=== PATIENT | male | born 2005 | race Caucasian/White ===

== ENCOUNTER 2023-01-09 18:22 | Emergency (ER) | payer OTHER, SELFPAY ==
[2023-01-09 18:23] VITALS: BP 108/57; PULSE 125; RESP 18; TEMP 37.9; O2SAT 99
[2023-01-09] MEDS: Acetaminophen 500 MG Tablet 1000 MG PO (18:41)
[2023-01-09] MEDS: Ibuprofen 400 MG Tablet 800 MG PO (18:42)
[2023-01-09 18:44] VITALS: BMI 22.2
--- NOTE | 2023-01-09 18:55 | EX.ED.DYSGE1 ---
HPI <WALTER Cochran - Last Filed: 01/09/23 20:00> History of Present Illness Chief Complaint: Cold Sx Narrative Narrative: Patient is a 17-year-old male with no significant medical history presents to the emergency department for 1 day of fever, sore throat, headache. Patient states that he is a college student, he woke up this morning not feeling well, and throughout the day, he noticed he had a fever, he was having difficulty ambulating because of body aches, and he is here for evaluation. He did not use any ibuprofen or Tylenol, he states he has not been drinking a lot of water because he was unable to walk because of his muscle aches to get to the water fountain. He denies any nausea or vomiting. He denies any cough. [facility] <WALTER Cochran - Last Filed: 01/09/23 20:00> [facility] Medical History (Updated 01/09/23 @ 20:00 by WALTER Cochran) Depression Home Medications NK 01/09/23 [History Last Taken Unknown] Allergy/AdvReac Type Severity Reaction Status Date / Time Food Allergies: Uncoded Allergy PT UNSURE Verified 01/09/23 18:25 OF REACTION Social History Smoking Status: Never smoker ROS <WALTER Cochran - Last Filed: 01/09/23 20:00> ROS ED ROS Narrative Constitutional: Negative for weight loss, weakness. Positive fever and chills Eyes: Negative for vision loss, vision change, double vision ENT: Negative for any ear pain, congestion. Positive for sore throat Cardiovascular: Negative for any chest pain, tightness, palpitations Respiratory: Negative for any cough, sputum production, hemoptysis, dyspnea, dyspnea on exertion, orthopnea Gastrointestinal: Negative for any abdominal pain, nausea, vomiting, diarrhea, constipation, blood in stool, blood in vomit : Negative for any urinary frequency, dysuria, retention, blood in urine Muscle skeletal: Negative for any muscle joint pain, stiffness, arthralgias, neck pain, back pain. Positive for myalgias Neurological: Negative for any headache, syncope, numbness or tingling, dizziness Skin: Negative for any rashes, lumps, itching, abrasions, lacerations Psychiatric: Negative for any depression, anxiety, stress, suicidal ideation, homicidal ideation Hematologic: Negative for any easy bruising, excessive bruising, easy bleeding Allergies: Negative for any eczema, hives, rash EXAM <WALTER Cochran - Last Filed: 01/09/23 20:00> Physical Exam Narrative Exam Narrative: Vital signs reviewed. Patient appears her fever, his eyes closed. HEET: Head normocephalic atraumatic, TMs clear bilaterally. Posterior pharynx is clear, moist mucous membranes. Nares clear bilaterally. Neck: Supple with no lymphadenopathy or tenderness. No signs of meningismus, negative jolt sign. Cardiac: Tachycardic rate no murmurs gallops or rubs, equal peripheral pulses bilaterally. Respiratory: Lungs clear to auscultation bilaterally. No chest tenderness. Abdomen: Soft, nontender, nondistended. No abdominal bruit or pulsatile masses. No hepatosplenomegaly Extremities: No peripheral edema, no signs of gross trauma or deformity. Active full range of motion of all extremities. Neuro: Cranial nerves II through XII intact, no focal neurological deficits. Skin: Clean dry and intact with no rash, purpura, petechiae, vesicles or pustules. Backs/flank: No CVA tenderness, no midline spinal tenderness, no deformity. Psych: Normal mood and affect. No SI, HI or acute psychosis. Const Vital Signs: 01/09/23 18:23 01/09/23 18:45 01/09/23 19:46 Temperature 100.3 F H 100.9 F H Temperature Source Temporal Oral Pulse Rate 125 H Respiratory Rate 18 Respiratory Effort Normal Non-Labored Respiratory Pattern Normal Blood Pressure 108/57 L Blood Pressure Mean 74 Pulse Ox 99 Oxygen Delivery Method Room Air Positive well nourished and well developed General Appearance ED: well developed <Dr. Gigi Nelson MD - Last Filed: 01/09/23 22:40> Physical Exam Const Vital Signs: 01/09/23 18:23 01/09/23 18:45 01/09/23 19:46 Temperature 100.3 F H 100.9 F H Temperature Source Temporal Oral Pulse Rate 125 H Respiratory Rate 18 Respiratory Effort Normal Non-Labored Respiratory Pattern Normal Blood Pressure 108/57 L Blood Pressure Mean 74 Pulse Ox 99 Oxygen Delivery Method Room Air MDM <WALTER Cochran - Last Filed: 01/09/23 20:00> MDM Lab Data Labs: Laboratory Results - last 24 hr 01/09/23 19:51 POC Glucose 106 Treatment and Re-Evaluation :: Patient appears generally well, patient appears nontoxic, vital signs are stable. Presenting to the emergency department for fever, chills, body aches headache sore throat for the last 12 hours. Patient's physical examination insistent with a viral-like syndrome. Differential diagnosis includes COVID-19, influenza, strep throat, other viral illness. Patient will receive ibuprofen, Tylenol here. Patient receive COVID-19, influenza testing as well as rapid strep. Patient's rapid strep, influenza, COVID are all negative. Patient's vital signs improved after ibuprofen, Tylenol. I believe the patient was suffering from significant discomfort secondary to not treating his fever secondary he had worsening muscle aches, headache. Patient states he is hungry and would like to eat something. Patient instructed to return for any worsening symptoms. At this time, patient be diagnosed with a viral illness. <Dr. Gigi Nelson MD - Last Filed: 01/09/23 22:40> [facility] Lab Data Labs: Laboratory Results - last 24 hr 01/09/23 19:51 POC Glucose 106 Treatment and Re-Evaluation Comments:: I have personally performed a face to face assessment of the patient and have reviewed the NARDA Note. I performed a substantive portion of the visit including all aspects of the following. My layton findings include: History is fevers, chills, myalgias, headache, sore throat for less than 1 day. No dyspnea. No coughing. No focal neurologic symptoms or confusion. Exam is appears malaised but in no distress. Febrile and mildly tachycardic. No cervical lymphadenopathy, neck supple. Posterior oropharynx shows some cobblestoning but normal tonsils and no trismus or stridor. Lungs clear. Ears normal. Medical Decison Making: Rapid strep and viral swabs, and supportive care if strep negative. All swabs returned negative including strep. Culture is sent, but will assume viral etiology, there has been a high prevalence in the community of this recently, supportive care advised unless the culture comes back positive we discussed that with her. Other additions or changes: [None] Discharge Plan Triage Chief Complaint: Cold Sx ED Midlevel Provider: Harsha Álvarez ED Provider: Gigi Nelson Dx/Rx/DC Orders Clinical Impression: Fever, Viral syndrome Instructions: ED Fever Control (Adult), ED Viral Syndrome (Adult) Prescriptions: No Action NK Primary Care Provider: Care Physician,No Primary Referrals: Care Physician,No Primary [Primary Care Provider] - Activity Restrictions/Additional Instructions: You will need to take 1000 mg of Tylenol every 6 hours, 600 mg of ibuprofen every 8 hours. Make sure that you maintain hydration, as well as eat a balanced diet. You should start to feel better in 3 to 4 days. Disposition Disposition: Home, Self Care Discharge Date/Time: 01/09/23 20:16
[2023-01-09 19:46] VITALS: TEMP 38.3
--- NOTE | 2023-01-09 19:58 | ED.RN ---
Pt temp re-checked, improved to 100.9 down from 102 at school nurse office. Pt reporting worsening MD JESSENIA aware.
[2023-01-09 20:10] LABS: Bedside Glucose 106 mg/dL (74-106)
== END 2023-01-09 20:16 | disposition home or self-care (01) ==
PROVIDERS: Emergency Provider Emergency Medicine; Visit Provider Emergency Medicine
DX: R50.9 Fever, unspecified (principal); B34.9 Viral infection, unspecified
CPT/HCPCS: 82962; 87428; 87880; 99283